=== PATIENT | female | born 1935 | race Caucasian/White ===

== ENCOUNTER 2018-06-09 09:17 | Outpatient (REF) | payer MEDICARE, OTHER, SELFPAY ==
[2018-06-09 14:48] LABS: Vitamin B12 554 pg/mL (193-986)
== END 2018-06-09 09:37 ==
LOC: NCHCN 09:17
PROVIDERS: PCP Nurse Practitioner Family; Visit Provider Nurse Practitioner Family
DX: R05 Cough (principal); M81.0 Age-related osteoporosis without current pathological fracture; K59.00 Constipation, unspecified; R53.83 Other fatigue; F51.04 Psychophysiologic insomnia; E53.8 Deficiency of other specified B group vitamins; E78.00 Pure hypercholesterolemia, unspecified; E03.9 Hypothyroidism, unspecified
CPT/HCPCS: 82607

== ENCOUNTER 2018-06-25 11:02 | Outpatient (CLI) | payer MEDICARE, OTHER, SELFPAY ==
--- NOTE | 2018-06-25 11:00 | DI.RAD_ITS ---
SYMPTOM/DIAGNOSIS: LOW BACK PAIN M54.5 LUMBOSACRAL SPINE: The vertebral bodies are intact. There is disc space narrowing at L2-3 with end plate sclerosis and mild hypertrophic spurring. The pedicles spinous and transverse processes as visualized appear intact. There is moderately severe facet joint DJD involving L3 through S1 bilaterally. There is no evidence of spondylolysis or spondylolisthesis. The sacrum and sacroiliac joints appear intact. SUMMARY: Degenerative changes are demonstrated as described above.
== END 2018-06-25 11:22 ==
PROVIDERS: PCP Nurse Practitioner Family; Visit Provider Nurse Practitioner
DX: M54.5 Low back pain (principal); M51.36 Other intervertebral disc degeneration, lumbar region; M47.817 Spondylosis without myelopathy or radiculopathy, lumbosacral region
CPT/HCPCS: 72110

== ENCOUNTER 2018-10-05 10:36 | Outpatient (REF) | payer MEDICARE, OTHER, SELFPAY ==
[2018-10-05 15:33] LABS: ALT 22 U/L (12-78); AST 23 U/L (15-37); Albumin 3.6 g/dL (3.4-5.0); Alkaline Phosphatase 96 U/L (46-116); BUN 22 mg/dL (7-18); Bilirubin, Total 0.9 mg/dL (0.2-1.0); CREATININE 0.84 mg/dL (0.55-1.02); Calcium 9.7 mg/dL (8.5-10.1); Chloride 105 mmol/L (98-107); Glucose 95 mg/dL (70-100); Potassium 4.3 mmol/L (3.5-5.1); Sodium 141 mmol/L (136-145); TSH (W/Ref FT4) 1.14 uIU/mL (0.358-3.74); Total Protein 6.7 g/dL (6.4-8.2); Vitamin B12 480 pg/mL (193-986)
== END 2018-10-05 10:56 ==
LOC: NCHCN 10:36
PROVIDERS: PCP Nurse Practitioner Family; Visit Provider Nurse Practitioner Family
DX: E78.00 Pure hypercholesterolemia, unspecified (principal); E03.9 Hypothyroidism, unspecified; E53.8 Deficiency of other specified B group vitamins; I10 Essential (primary) hypertension; R53.83 Other fatigue; R05 Cough; M54.5 Low back pain; M81.0 Age-related osteoporosis without current pathological fracture
CPT/HCPCS: 80053; 82607; 84443

== ENCOUNTER 2018-12-25 14:44 | Outpatient (CLI) | payer MEDICARE, OTHER, SELFPAY ==
--- NOTE | 2018-12-25 15:07 | DI.RAD_ITS ---
SYMPTOMS/DIAGNOSIS: COUGH, R05, FATIGUE, R53.83 CHEST X-RAY, FRONTAL AND LATERAL VIEWS: No priors. The heart is normal in size. The lungs are clear. The mediastinal structures and pleura appear intact. IMPRESSION: Normal chest.
== END 2018-12-25 15:04 ==
PROVIDERS: PCP Nurse Practitioner Family; Visit Provider Nurse Practitioner Family
DX: R05 Cough (principal); R53.83 Other fatigue
CPT/HCPCS: 71046

== ENCOUNTER 2018-12-25 15:05 | Outpatient (REF) | payer MEDICARE, OTHER, SELFPAY ==
[2018-12-25 21:06] LABS: Abs Immature Grans 0.01 k/cumm (0.0-0.09); Absolute Basophil Count 0.03 k/cumm (0.0-0.2); Absolute Eosinophil Count 0.16 k/cumm (0.0-0.7); Absolute Lymphocyte Count 1.89 k/cumm (1.2-3.4); Absolute Monocyte Count 0.52 k/cumm (0.11-0.7); Absolute Neutrophil Count 4.41 k/cumm (1.2-6.7); Basophils % 0.4; Eosinophils % 2.3; HCT 45.2 % (36.0-46.0); HGB 14.7 g/dL (12.0-15.5); Immature Grans % 0.1; Lymphocytes % 26.9; Mean Corp. HGB Concentration 32.5 g/dL (32.0-36.0); Mean Corpuscular Hemoglobin 29.2 pg (27.0-33.0); Mean Corpuscular Volume 89.9 fL (80-95); Mean Platelet Volume 10.9 fL (8.0-11.0); Monocytes % 7.4; Neutrophils % 62.9; Platelet Count 236 x1000/uL (130-400); RBC 5.03 m/cumm (4.00-5.20); White Blood Cell Count 7.02 k/cumm (4.4-10.8)
[2018-12-25 21:18] LABS: Iron 57 ug/dL (50-175); Total Iron Binding Capacity 270 ug/dL (250-450); Transferrin Sat 21 % (15-50)
[2018-12-25 22:00] LABS: ESR 11 MM/HR (0-30)
[2018-12-25 22:04] LABS: ALT 27 U/L (12-78); AST 22 U/L (15-37); Albumin 4.1 g/dL (3.4-5.0); Alkaline Phosphatase 95 U/L (46-116); Anion Gap 9.9 mmol/L (3-11); BUN 17 mg/dL (7-18); Bilirubin, Total 0.9 mg/dL (0.2-1.0); CO2 27.1 mmol/L (21.0-32.0); CREATININE 0.84 mg/dL (0.55-1.02); Calcium 9.9 mg/dL (8.5-10.1); Chloride 103 mmol/L (98-107); Ferritin 76 ng/mL (8-388); Glucose 100 mg/dL (70-100); Potassium 3.8 mmol/L (3.5-5.1); Sodium 140 mmol/L (136-145); TSH (W/Ref FT4) 0.34 uIU/mL (0.358-3.74); Total Protein 7.2 g/dL (6.4-8.2); Vitamin B12 675 pg/mL (193-986)
[2018-12-25 22:20] LABS: C-Reactive Protein 0.12 mg/dL (0.0-0.3)
[2018-12-28 06:40] LABS: Vitamin D 25 Total 40.3 ng/ml (30-100)
== END 2018-12-25 15:25 ==
LOC: NCHCN 15:05
PROVIDERS: PCP Nurse Practitioner Family; Visit Provider Nurse Practitioner Family
DX: R05 Cough (principal); I10 Essential (primary) hypertension; R53.83 Other fatigue
CPT/HCPCS: 80053; 82306; 85652; 82607; 82728; 83540; 83550; 83735; 84439; 84443; 85025; 86140

== ENCOUNTER 2019-02-04 08:50 | Outpatient (REF) | payer MEDICARE, OTHER, SELFPAY ==
[2019-02-04 13:48] LABS: TSH (W/Ref FT4) 1.86 uIU/mL (0.358-3.74)
== END 2019-02-04 09:10 ==
LOC: NCHCN 08:50
PROVIDERS: PCP Nurse Practitioner Family; Visit Provider Nurse Practitioner Family
DX: E03.9 Hypothyroidism, unspecified (principal); I10 Essential (primary) hypertension; R05 Cough
CPT/HCPCS: 84443

== ENCOUNTER 2019-10-28 10:25 | Outpatient (REF) | payer MEDICARE, OTHER, SELFPAY ==
[2019-10-28 13:00] LABS: ALT 22 U/L (14-59); AST 18 U/L (15-37); Albumin 3.8 g/dL (3.4-5.0); Alkaline Phosphatase 85 U/L (46-116); Anion Gap 6.6 mmol/L (3-11); BUN 19 mg/dL (7-18); Bilirubin, Total 1.1 mg/dL (0.2-1.0); CO2 26.4 mmol/L (21.0-32.0); CREATININE 0.83 mg/dL (0.55-1.02); Calcium 9.2 mg/dL (8.5-10.1); Chloride 108 mmol/L (98-107); Glucose 109 mg/dL (74-106); Potassium 4.2 mmol/L (3.5-5.1); Sodium 141 mmol/L (136-145); TSH (W/Ref FT4) 0.73 uIU/mL (0.36-3.74); Total Protein 6.8 g/dL (6.4-8.2); Vitamin B12 412 pg/mL (193-986)
== END 2019-10-28 10:45 ==
LOC: NCHCN 10:25
PROVIDERS: PCP Nurse Practitioner Family; Visit Provider Nurse Practitioner Family
DX: E03.9 Hypothyroidism, unspecified (principal); E78.00 Pure hypercholesterolemia, unspecified; R53.83 Other fatigue; E53.8 Deficiency of other specified B group vitamins; I10 Essential (primary) hypertension; F51.04 Psychophysiologic insomnia; K59.00 Constipation, unspecified
CPT/HCPCS: 80053; 82607; 84443

== ENCOUNTER 2020-10-12 14:30 | Outpatient (REF) | payer MEDICARE, OTHER, SELFPAY ==
[2020-10-12 14:06] LABS: ALT 21 U/L (14-59); AST 18 U/L (15-37); Albumin 3.9 g/dL (3.4-5.0); Alkaline Phosphatase 74 U/L (46-116); Anion Gap 10.5 mmol/L (3-11); BUN 17 mg/dL (7-18); Bilirubin, Total 0.9 mg/dL (0.2-1.0); CO2 26.5 mmol/L (21.0-32.0); CREATININE 0.92 mg/dL (0.55-1.02); Calcium 9.6 mg/dL (8.5-10.1); Chloride 104 mmol/L (98-107); Glucose 92 mg/dL (74-106); Potassium 4.4 mmol/L (3.5-5.1); Sodium 141 mmol/L (136-145); TSH (W/Ref FT4) 1.32 uIU/mL (0.36-3.74); Vitamin B12 598 pg/mL (193-986)
== END 2020-10-12 14:50 ==
LOC: NCHCN 14:30
PROVIDERS: PCP Nurse Practitioner Family; Visit Provider Nurse Practitioner Family
DX: I10 Essential (primary) hypertension (principal); R53.83 Other fatigue; E53.8 Deficiency of other specified B group vitamins; R05 Cough; M81.0 Age-related osteoporosis without current pathological fracture; K59.00 Constipation, unspecified; R17 Unspecified jaundice
CPT/HCPCS: 80053; 82607; 84443

== ENCOUNTER 2021-08-07 14:20 | Outpatient (REF) | payer MEDICARE, OTHER, SELFPAY ==
[2021-08-08 02:35] LABS: Calcium 9.6 mg/dL (8.5-10.1)
[2021-08-08 02:36] LABS: ALT 24 U/L (14-59); AST 23 U/L (15-37); Alkaline Phosphatase 81 U/L (46-116); Anion Gap 10.9 mmol/L (3-11); BUN 19 mg/dL (7-18); Bilirubin, Total 0.9 mg/dL (0.2-1.0); CO2 27.1 mmol/L (21.0-32.0); CREATININE 0.9 mg/dL (0.55-1.02); Chloride 106 mmol/L (98-107); Estimated GFR 59.65 (mL/min/1.73m2); Glucose 101 mg/dL (74-106); Sodium 144 mmol/L (136-145); TSH (W/Ref FT4) 5.93 uIU/mL (0.36-3.74); Vitamin B12 347 pg/mL (193-986)
== END 2021-08-07 14:21 | disposition home or self-care (01) ==
LOC: NCHCN 14:20
PROVIDERS: PCP Nurse Practitioner Family; Visit Provider Nurse Practitioner Family
DX: R53.83 Other fatigue (principal); R17 Unspecified jaundice; K59.00 Constipation, unspecified; F41.9 Anxiety disorder, unspecified; F51.04 Psychophysiologic insomnia
CPT/HCPCS: 80053; 82607; 84439; 84443

== ENCOUNTER 2021-10-03 08:54 | Outpatient (REF) | payer MEDICARE, OTHER, SELFPAY | END 2021-10-03 08:55 | disposition home or self-care (01) | LOC: NCHCN 08:54 | PROVIDERS: PCP Nurse Practitioner Family; Visit Provider Nurse Practitioner Family | CPT/HCPCS: 84443 ==

== ENCOUNTER 2021-10-04 13:01 | Outpatient (REF) | payer MEDICARE, OTHER, SELFPAY ==
[2021-10-04 16:06] LABS: TSH (W/Ref FT4) 0.01 uIU/mL (0.36-3.74)
[2021-10-04 16:24] LABS: FREE T4 2.03 ng/dL (0.76-1.46)
== END 2021-10-04 13:02 | disposition home or self-care (01) ==
LOC: NCHCN 13:01
PROVIDERS: PCP Nurse Practitioner Family; Visit Provider Nurse Practitioner Family
DX: E03.9 Hypothyroidism, unspecified (principal)
CPT/HCPCS: 84439; 84443

== ENCOUNTER 2021-11-26 12:50 | Outpatient (REF) | payer MEDICARE, OTHER, SELFPAY ==
[2021-11-26 15:52] LABS: TSH (W/Ref FT4) 3.23 uIU/mL (0.36-3.74)
== END 2021-11-26 12:51 | disposition home or self-care (01) ==
LOC: NCHCN 12:50
PROVIDERS: PCP Nurse Practitioner Family; Visit Provider Nurse Practitioner Family
DX: E03.9 Hypothyroidism, unspecified (principal)
CPT/HCPCS: 84443

== ENCOUNTER → 2022-02-14 02:03 | Outpatient (CLI) | payer MEDICARE, OTHER, SELFPAY ==
--- NOTE | 2022-02-14 13:52 | DI.RAD_ITS ---
Exam(s) XR SHOULDER RT COMPLETE 2+V EXAM: XR SHOULDER RT COMPLETE 2+V CLINICAL HISTORY: RT SHOULDER PAIN,M25.511. TECHNIQUE: 2D digital imaging was performed of the right shoulder. Five images were obtained. AP, Grashey, Y-view and axillary views were obtained. COMPARISON: No exams were available for comparison FINDINGS: BONES: No acute fracture is present. No bony destructive lesion is seen. JOINTS: No dislocation present. [id number]-zo-[id number] degenerative changes are seen at the acromioclavicul ar and glenohumeral joints. SOFT TISSUE: Normal. IMPRESSION: Httn-ov-tolwsdwe degenerative changes of the right shoulder. DATA REPOSITORY: RADIATION DOSE DELIVERED:
== END ==
PROVIDERS: PCP Nurse Practitioner Family; Visit Provider Nurse Practitioner Family
DX: M25.511 Pain in right shoulder (principal); M19.011 Primary osteoarthritis, right shoulder
CPT/HCPCS: 73030

== ENCOUNTER 2022-02-15 19:26 | Outpatient (REF) | payer MEDICARE, OTHER, SELFPAY | END 2022-02-15 19:27 | disposition home or self-care (01) | LOC: NCHCN 19:26 | PROVIDERS: PCP Nurse Practitioner Family; Visit Provider Nurse Practitioner Family | DX: N39.0 Urinary tract infection, site not specified (principal) | CPT/HCPCS: 87086 ==

== ENCOUNTER 2022-02-18 06:02 | Emergency (ER) | payer MEDICARE, OTHER, SELFPAY ==
[2022-02-18] VITALS (31 sets, daily range): BP systolic 132–196; BP diastolic 61–84; PULSE 67–87; RESP 12–21; TEMP 36.2–37; O2SAT 95–100
--- NOTE | 2022-02-18 06:00 | RT.EKG_ITS ---
APPROVED REPORT Exam: Resting ECG Reason for Exam: weakness Patient Location: E HR:71 bpm ECG Measurements Heart Rate 71 AXIS AR 169 P 56 QRSd 90 QRS 20 QT 385 T 36 QTc 419 Conclusion Sinus rhythm...normal P axis, V-rate 60- 99 Physician: minimal depression in V4 and V5. No ST elevation. No STEMI. Q wave in lead 3. no prior for comparison
--- NOTE | 2022-02-18 06:16 | W.ED.GENAD ---
Discharge Plan Disposition Patient Disposition: STILL A PATIENT Condition: Stable Discharge Details Chief Complaint: GenMedical Clinical Impression: Weakness Primary Care Provider: Rachel Ventura ED Provider: Rico Almodovar Home Meds and New Rx's Prescriptions: No Action lidocaine 4 % adhesive patch,medicated 1 patch TOPICAL Q12H PRN PRN Label Comments: apply prn shoulder acetaminophen [Tylenol Extra Strength] 500 mg Tablet 500 mg PO Q6H PRN simvastatin 40 mg tablet 1 tab PO DAILY levothyroxine 100 mcg tablet 1 tab PO DAILY levothyroxine [Synthroid] 88 mcg tablet 1 tab PO DAILY candesartan 16 mg tablet 1 tab PO DAILY aspirin 81 mg Tablet 81 mg PO Q3-4D polyethylene glycol 3350 [Miralax] 17 gram/dose powder 1 pwd PO DAILY Label Comments: 1 daily fluticasone propionate 50 mcg/actuation spray,suspension 1 spray INTRANASAL BID Joe 128 2 % drops 1 drp ophthalmic (eye) BID PRN Label Comments: 1 drop bid prn Dry Eye Relief 1-0.2-0.2 % drops 1 drp ophthalmic (eye) TID PRN Label Comments: 1-3 times daily Fish Oil 1,000 mg Capsule 1 cap PO DAILY cholecalciferol (vitamin D3) [Vitamin D3] 25 mcg (1,000 unit) tablet 1 tab PO DAILY Label Comments: take 1 daily PreserVision AREDS-2 250-90-40-1 mg Capsule 1 tab PO DAILY Medical Decision Making This is a 87-year-old female with a past medical history of hypothyroidism, high cholesterol, hypertension, who was recently started on nitrofurantoin for urinary tract infection 3 days ago, who presents today via EMS for weakness. Patient states that she did have an increase in her urination 3 to 4 days ago, at which point she was started on nitrofurantoin by her primary care provider. Since then she has had continued increase in urination which is now been compounded by notable weakness with any activities. She states that she feels very fatigued. She wishes I could just sleep for 3 days. She denies any room spinning sensation but does feel lightheaded when she stands up. She does live at home with her . She denies any falls or trauma. She denies any fever. She does admit to a cough that is been present for the last 3 to 4 days as well. She has received her COVID-vaccine and her flu vaccine. No other complaints at this time. No other modifying factors. Exam demonstrates a well-appearing female, notably dry mucous membranes, and notably weak in all extremities. Lung sounds are clear but she does admit to a cough. Differential includes COVID, pneumonia, continued urinary tract infection, compounded by dehydration. We will gently rehydrate with 500 cc of normal saline, we will evaluate for infectious etiologies. Stroke seems less likely but given her age and risk factors we will get a CT scan to rule out significant abnormality. Will monitor closely and reassess. She denies chest pain, but we will get a troponin and EKG to evaluate for evidence of ACS. EKG: Sinus, minimal depression in V4 and V5. No ST elevation. No STEMI. Q wave in lead 3. no prior for comparison HPI General Date/Time Provider Initiated Documentation: 02/18/22 06:09. HPI Narrative: This is a 87-year-old female with a past medical history of hypothyroidism, high cholesterol, hypertension, who was recently started on nitrofurantoin for urinary tract infection 3 days ago, who presents today via EMS for weakness. Patient states that she did have an increase in her urination 3 to 4 days ago, at which point she was started on nitrofurantoin by her primary care provider. Since then she has had continued increase in urination which is now been compounded by notable weakness with any activities. She states that she feels very fatigued. She wishes I could just sleep for 3 days. She denies any room spinning sensation but does feel lightheaded when she stands up. She does live at home with her . She denies any falls or trauma. She denies any fever. She does admit to a cough that is been present for the last 3 to 4 days as well. She has received her COVID-vaccine and her flu vaccine. No other complaints at this time. No other modifying factors. Related Data Home Medications Medication Instructions Recorded Confirmed acetaminophen 500 mg tablet 500 mg PO Q6H PRN 02/18/22 02/18/22 (Tylenol Extra Strength) aspirin 81 mg tablet 81 mg PO Q3-4D 02/18/22 02/18/22 candesartan 16 mg tablet 1 tab PO DAILY 02/18/22 02/18/22 cholecalciferol (vitamin D3) 25 1 tab PO DAILY 02/18/22 02/18/22 mcg (1,000 unit) tablet (Vitamin D3) fluticasone propionate 50 1 spray intranasal BID 02/18/22 02/18/22 mcg/actuation nasal spray,suspension levothyroxine 100 mcg tablet 1 tab PO DAILY 02/18/22 02/18/22 levothyroxine 88 mcg tablet 1 tab PO DAILY 02/18/22 02/18/22 (Synthroid) lidocaine 4 % topical patch 1 patch topical Q12H PRN PRN 02/18/22 02/18/22 omega-3 fatty acids-vitamin E 1 cap PO DAILY 02/18/22 02/18/22 1,000 mg capsule peg [id number] 1 1 drp ophthalmic (eye) TID PRN 02/18/22 02/18/22 %-0.2 %-0.2 % eye drops (Dry Eye Relief) polyethylene glycol 3350 17 1 pwd PO DAILY 02/18/22 02/18/22 gram/dose oral powder (Miralax) simvastatin 40 mg tablet 1 tab PO DAILY 02/18/22 02/18/22 sodium chloride 2 % eye drops 1 drp ophthalmic (eye) BID PRN 02/18/22 02/18/22 (Joe 128) vit C 250 mg-vit E 90 mg-zinc 40 1 tab PO DAILY 02/18/22 02/18/22 mg-copper 1 lf-ivkzaf-ohgpjz capsule (PreserVision AREDS-2) Allergies Allergy/AdvReac Type Severity Reaction Status Date / Time epinephrine Allergy Intermediate Other (See Unverified 02/18/22 06:46 Comment) neomycin Allergy Mild Other (See Unverified 02/18/22 06:46 Comment) Penicillins Allergy Mild Other (See Unverified 02/18/22 06:46 Comment) tetracycline Allergy Mild Other (See Unverified 02/18/22 06:46 Comment) General Stated Complaint: GenMedical HERMINIO: 3 Review of Systems All systems reviewed & are unremarkable except as noted in HPI and below PFSH All Active Problems (Updated 02/18/22 @ 07:07 by Rico Almodovar DO) Weakness (Acute) Social History Smoking/Tobacco Use Status: Never Smoking risk assessment performed?: Yes Alcohol Intake: current Substance use type: does not use Do you feel safe at home: Yes Do you feel safe in your relationship?: Yes Exam Narrative Exam Narrative: 1.Const: Well-nourished, Well-developed, appearing stated age 2.Eyes: PERRL, no conjunctival injection, and symmetrical lids. 3.ENT: Atraumatic external nose and ears. Notably dry MM. Neck: Symmetric, trachea midline, No thyromegaly. 4.CVS: +S1/S2, No murmurs or gallops. Peripheral pulses 2+ and equal in all extremities. Brisk capillary refill in all extremities. 5.RESP: Unlabored respiratory effort. Clear to auscultation bilaterally. No wheezes rales or rhonchi 6.GI: Soft, Nontender/Nondistended, No hepatosplenomegaly. No guarding or rebound. 7.MSK: Normocephalic/Atraumatic, Extremities w/o deformity or ttp No cyanosis or clubbing, Normal movement of all extremities, no pitting edema. Patient is able to move all extremities, however she does demonstrate on the 3-4 out of 5 strength in all extremities. Very weak with movement in general. 8.Skin: Warm, Dry. No rashes or lesions. 9.Neuro: visitor services coordinator II-XII grossly intact. Sensation grossly intact, no focal neurologic deficits. No clear focal neurologic deficit. No dysdiadochokinesia or dysmetria. 10.Psych: (AAO) x3. Appropriate mood and affect Course Vital Signs Vital signs: Vital Signs Temperature 37.0 C 02/18/22 06:07 Pulse 81 02/18/22 06:07 Respiratory Rate 13 02/18/22 06:07 Blood Pressure 196/82 H 02/18/22 06:07 Pulse Oximetry 98 02/18/22 06:07 Temperature 37.0 C 02/18/22 06:07 Temperature Source Skin 02/18/22 06:07 Pulse 81 02/18/22 06:07 Respiratory Rate 13 02/18/22 06:07 Blood Pressure 196/82 H 02/18/22 06:07 Blood Pressure Position Supine 02/18/22 06:07 Pulse Oximetry 98 02/18/22 06:07 Oxygen Delivery Method Room Air 02/18/22 06:07 Oxygen Flow Rate 0 02/18/22 06:07 Pain Level 0 02/18/22 06:07
[2022-02-18] MEDS: Normal Saline 500 ML IV (06:38)
[2022-02-18 06:51] LABS: Abs Immature Grans 0.02 10^3/uL (0.0-0.06); Absolute Basophil Count 0.03 10^3/uL (0.0-0.2); Absolute Eosinophil Count 0.05 10^3/uL (0.0-0.7); Absolute Lymphocyte Count 0.89 10^3/uL (1.2-3.4); Absolute Monocyte Count 0.39 10^3/uL (0.1-0.8); Absolute Neutrophil Count 4.52 10^3/uL (1.2-6.7); Basophils % 0.5; Eosinophils % 0.8; HCT 43.9 % (36.0-46.0); HGB 14.4 g/dL (11.2-15.7); Immature Grans % 0.3; Lymphocytes % 15.1; MCH 30.3 pg (27.0-33.0); MCHC 32.8 % (32.0-36.0); MCV 92 fL (80-95); MPV 9.9 fL (8.0-11.0); Monocytes % 6.6; Neutrophils % 76.7; Platelet Count 211 10^3/uL (130-400); RBC 4.75 10^6/uL (3.93-5.22); RDW 14.3 % (11.7-14.6); RDW-SD 48.6 fL
--- NOTE | 2022-02-18 07:02 | DI.CT_ITS ---
Exam(s) CT HEAD WO EXAM: CT HEAD WO CLINICAL HISTORY: weakness, r/o stroke. TECHNIQUE: Imaging Protocol: Axial computed tomography images with coronal and sagittal reformatted images were created and reviewed COMPARISON: No exams were available for comparison FINDINGS: Ventricles and Extra axial spaces: Normal in size and morphology for the patient's age. Hemorrhage: None. Cerebral parenchyma: Mild atrophy. Mild white matter changes consistent with small vessel disease. Midline shift: None. Brainstem/Cerebellum: Normal. Calvarium: Normal. Visualized Paranasal sinuses/Mastoids: Clear. IMPRESSION: No acute abnormality. RADIATION DOSE DELIVERED: 705.77mGy.cm Total DLP 705.77mGy.cm Total DLP DATA REPOSITORY: All CT scans at this facility are submitted to the National Radiology Data Registry (NRDR) Dose Index Registry (DIR) with the [employer] (ACR). RADIATION OPTIMIZATION: All CT scans at this facility use at least one of these dose optimization te chniques: automated exposure control; mA and/or kV adjustment per patient size (includes targeted exa ms where dose is matched to clinical indication); or iterative reconstruction.
--- NOTE | 2022-02-18 07:10 | DI.RAD_ITS ---
Exam(s) XR CHEST 1V IN DI DEPT EXAM: XR CHEST 1V IN DI DEPT CLINICAL HISTORY: cough, weakness, r/o pneumonia TECHNIQUE: 2D digital imaging was performed. COMPARISON: CR XR CHEST 2V PA LATERAL from 12/25/2018 FINDINGS: LUNGS: Clear. No pleural abnormality seen. HEART: Normal. AORTA: Normal. BONES: Unremarkable for age. Soft tissues: Unremarkable. IMPRESSION: No acute findings. DATA REPOSITORY: RADIATION DOSE DELIVERED:
[2022-02-18 07:30] LABS: COVID-19 PCR Negative (Negative); Influenza A PCR Negative (Negative); Influenza B PCR Negative (Negative); RSV PCR Negative (Negative)
[2022-02-18 07:33] LABS: Source Nasopharynx
[2022-02-18 07:43] LABS: Bilirubin Negative (Negative); Blood Negative (Negative); Clarity Clear (Clear); Glucose Negative (Negative); Ketones Negative (Negative); Leukocyte Esterase Negative (Negative); Nitrite Negative (Negative); Specific Gravity 1.015 (1.005-1.025); Urobilinogen 0.2 EU/dL (Up TO 0.2)
[2022-02-18 07:57] LABS: ALT 25 U/L (14-59); AST 29 U/L (15-37); Albumin 3.6 g/dL (3.4-5.0); Alkaline Phosphatase 94 U/L (46-116); Anion Gap 5.8 mmol/L (3-11); BUN 14 mg/dL (7-18); Bilirubin, Total 0.8 mg/dL (0.2-1.0); CO2 28.2 mmol/L (21.0-32.0); CREATININE 0.8 mg/dL (0.55-1.02); Chloride 107 mmol/L (98-107); Glucose 103 mg/dL (74-106); Potassium 4.4 mmol/L (3.5-5.1); Sodium 141 mmol/L (136-145); TSH (W/Ref FT4) 45.75 uIU/mL (0.36-3.74); Total Protein 6.9 g/dL (6.4-8.2); Troponin I < 50 ng/L (<or=60)
--- NOTE | 2022-02-18 07:57 | DI.VRAD_ITS ---
PROCEDURE INFORMATION: Exam: CT Head Without Contrast Exam date and time: 02/18/2022 7:02 AM Age: 87 years old Clinical indication: Patient HX: Weakness/r/o stroke TECHNIQUE: Imaging protocol: Computed tomography of the head without contrast. Radiation optimization: All CT scans at this facility use at least one of these dose optimization techniques: automated exposure control; mA and/or kV adjustment per patient size (includes targeted exams where dose is matched to clinical indication); or iterative reconstruction. Other technique: STROKE PROTOCOL was implemented. COMPARISON: No relevant prior studies available. FINDINGS: Brain: No acute intracerebral abnormality or injury. No acute infarct or intracerebral bleed. Mild age-appropriate cerebral atrophy with patchy periventricular leukomalacia in both cerebral hemispheres, consistent most likely with chronic underlying small vessel / microvascular ischemic disease. [place] Stroke Program Early CT Score (ASPECTS score) = 10, negative for acute intracerebral infarct. Cerebral ventricles: No ventriculomegaly. Paranasal sinuses: Visualized sinuses are unremarkable. No fluid levels. Mastoid air cells: Visualized mastoid air cells are well aerated. Bones/joints: Unremarkable. No acute fracture. Soft tissues: Unremarkable. IMPRESSION: 1. No acute intracerebral abnormality or injury. No acute infarct or intracerebral bleed. 2. Mild age-appropriate cerebral atrophy with patchy periventricular leukomalacia in both cerebral hemispheres, consistent most likely with chronic underlying small vessel / microvascular ischemic disease. 3. [place] Stroke Program Early CT Score (ASPECTS score) = 10, negative for acute intracerebral infarct. Dictated and Authenticated by: Jett Bryan MD. Ordering:GWENDOLYN Gómez MD
--- NOTE | 2022-02-18 08:01 | DI.VRAD_ITS ---
PROCEDURE INFORMATION: Exam: XR Chest Exam date and time: 02/18/2022 7:09 AM Age: 87 years old Clinical indication: Cough TECHNIQUE: Imaging protocol: XR of the chest. Views: 1 view. COMPARISON: CR XR CHEST 2V PA LATERAL 12/25/2018 3:17 PM FINDINGS: Lungs: Unremarkable. No consolidation. Pleural spaces: Unremarkable. No pleural effusion. No pneumothorax. Heart/Mediastinum: Unremarkable. No cardiomegaly. Bones/joints: Mild chronic degenerative vertebral body endplate osteophytic disease is seen in the lower thoracic spine. IMPRESSION: 1. No definite acute findings. No significant interval change since the previous chest radiograph from 12/25/2018. 2. Mild chronic degenerative vertebral body endplate osteophytic disease is seen in the lower thoracic spine. Dictated and Authenticated by: Jett Bryan MD. Ordering:GWENDOLYN Gómez MD
[2022-02-18 08:13] LABS: FREE T4 0.93 ng/dL (0.76-1.46)
--- NOTE | 2022-02-18 11:22 | ED.PROG_ITS ---
Date of service: 02/18/22 Time of Service: 10:22 Medical Decision Making Pt signed out to me by Dr. Almodovar at time of shift change with CT, chest x-ray, labs pending. CXR negative. CT head negative. Labs reviewed and non-diagnostic, no leukocytosis, trop negative. Pt reports that she feels improved and would like to go home. I offered Pt admission for generalized weakness of unclear etiology at this time, Pt states that she feels comfortable going home and would much prefer to go home and f/u with her PCP. Pt is able to stand and walk, no focal weakness on my assessment. Discussed patient presentation and results with her PCP over the phone, plan for outpatient follow-up this week. I had a discussion with Patient regarding return to emergency department precautions, home care, and importance of outpatient follow-up. Pt verbalizes understanding of the plan and is amenable. Patient discharged to home with clear plan for outpatient follow-up. All questions were answered. Disposition decision was made weighing the risks and benefits of hospitalization versus outpatient treatment, the risk for further decompensation, and the patient's wishes. Medical Records Medical records reviewed: Yes I reviewed the patient's medical records. Imaging Data Radiologic Study: Attestation: I personally reviewed and interpreted this imaging study as follows: Radiologist's impression: Exam: XR Chest Exam date and time: 02/18/2022 7:09 AM Age: 87 years old Clinical indication: Cough TECHNIQUE: Imaging protocol: XR of the chest. Views: 1 view. COMPARISON: CR XR CHEST 2V PA LATERAL 12/25/2018 3:17 PM FINDINGS: Lungs: Unremarkable. No consolidation. Pleural spaces: Unremarkable. No pleural effusion. No pneumothorax. Heart/Mediastinum: Unremarkable. No cardiomegaly. Bones/joints: Mild chronic degenerative vertebral body endplate osteophytic disease is seen in the lower thoracic spine.? IMPRESSION: 1. No definite acute findings.? No significant interval change since the previous chest radiograph from 12/25/2018. 2. Mild chronic degenerative vertebral body endplate osteophytic disease is seen in the lower thoracic spine.? EXAM: ? CT HEAD WO CLINICAL HISTORY: ? weakness, r/o stroke. ? TECHNIQUE:? Imaging Protocol: Axial computed tomography images with coronal and sagittal reformatted images were created and reviewed COMPARISON:? No exams were available for comparison FINDINGS: Ventricles and Extra axial spaces: Normal in size and morphology for the patient's age. Hemorrhage: None. Cerebral parenchyma: Mild atrophy.? Mild white matter changes consistent with small vessel disease. Midline shift: None. Brainstem/Cerebellum: Normal. Calvarium: Normal. Visualized Paranasal sinuses/Mastoids: Clear. IMPRESSION: No acute abnormality. Lab Data Lab results reviewed: Yes I reviewed the patient's lab results. Labs: Laboratory Tests Range/Units 02/18/22 02/18/22 02/18/22 06:34 06:34 06:34 WBC (4.4-10.8) 10^3/uL 5.90 RBC (3.93-5.22) 10^6/uL 4.75 Hgb (11.2-15.7) g/dL 14.4 Hct (36.0-46.0) % 43.9 MCV (80-95) fL 92 MCH (27.0-33.0) pg 30.3 MCHC (32.0-36.0) % 32.8 RDW (11.7-14.6) % 14.3 Plt Count (130-400) 10^3/uL 211 MPV (8.0-11.0) fL 9.9 Immature Gran % 0.3 Neutrophils % 76.7 Lymphocytes % 15.1 Monocytes % 6.6 Eosinophils % 0.8 Basophils % 0.5 Nucleated RBC % (0.0-0.3) % 0.0 Absolute Neutrophils (1.2-6.7) 10^3/uL 4.52 Absolute Lymphocytes (1.2-3.4) 10^3/uL 0.89 L Absolute Monocytes (0.1-0.8) 10^3/uL 0.39 Absolute Eosinophils (0.0-0.7) 10^3/uL 0.05 Absolute Basophils (0.0-0.2) 10^3/uL 0.03 Sodium Cancelled Potassium Cancelled Chloride Cancelled Carbon Dioxide Cancelled Anion Gap Cancelled BUN Cancelled Creatinine Cancelled Estimated GFR/1.73 m2 Cancelled Glucose Cancelled Calcium Cancelled Total Bilirubin Cancelled AST Cancelled ALT Cancelled Alkaline Phosphatase Cancelled Troponin I Cancelled Cancelled Total Protein Cancelled Albumin Cancelled TSH Cancelled Free T4 (0.76-1.46) ng/dL Urine Color (Yellow) Urine Clarity (Clear) Urine pH (5-8) Ur Specific [place] (1.005-1.025) Urine Protein (Negative) mg/dL Urine Ketones (Negative) mg/dL Urine Blood (Negative) Urine Nitrite (Negative) Urine Bilirubin (Negative) Urine Urobilinogen (Up TO 0.2) EU/dL Ur Leukocyte Esterase (Negative) Urine Glucose (Negative) mg/dL COVID-19 Source SARS-CoV-2 (PCR) (Negative) Influenza Type A (PCR) (Negative) Influenza Type B (PCR) (Negative) RSV (PCR) (Negative) Range/Units 02/18/22 02/18/22 02/18/22 06:36 07:25 07:30 WBC (4.4-10.8) 10^3/uL RBC (3.93-5.22) 10^6/uL Hgb (11.2-15.7) g/dL Hct (36.0-46.0) % MCV (80-95) fL MCH (27.0-33.0) pg MCHC (32.0-36.0) % RDW (11.7-14.6) % Plt Count (130-400) 10^3/uL MPV (8.0-11.0) fL Immature Gran % Neutrophils % Lymphocytes % Monocytes % Eosinophils % Basophils % Nucleated RBC % (0.0-0.3) % Absolute Neutrophils (1.2-6.7) 10^3/uL Absolute Lymphocytes (1.2-3.4) 10^3/uL Absolute Monocytes (0.1-0.8) 10^3/uL Absolute Eosinophils (0.0-0.7) 10^3/uL Absolute Basophils (0.0-0.2) 10^3/uL Sodium 141 Potassium 4.4 Chloride 107 Carbon Dioxide 28.2 Anion Gap 5.8 BUN 14 Creatinine 0.8 Estimated GFR/1.73 m2 >= 60.00 Glucose 103 Calcium 9.0 Total Bilirubin 0.8 AST 29 ALT 25 Alkaline Phosphatase 94 Troponin I < 50 Total Protein 6.9 Albumin 3.6 TSH 45.75 H Free T4 (0.76-1.46) ng/dL 0.93 Urine Color (Yellow) Yellow Urine Clarity (Clear) Clear Urine pH (5-8) 7.0 Ur Specific [place] (1.005-1.025) 1.015 Urine Protein (Negative) mg/dL Negative Urine Ketones (Negative) mg/dL Negative Urine Blood (Negative) Negative Urine Nitrite (Negative) Negative Urine Bilirubin (Negative) Negative Urine Urobilinogen (Up TO 0.2) EU/dL 0.2 Ur Leukocyte Esterase (Negative) Negative Urine Glucose (Negative) mg/dL Negative COVID-19 Source Nasopharynx SARS-CoV-2 (PCR) (Negative) Negative Influenza Type A (PCR) (Negative) Negative Influenza Type B (PCR) (Negative) Negative RSV (PCR) (Negative) Negative Sign Out Sign Out Data: Sign Out Comment: weakness, pending CT, CXR, and labs Last updated by Rico Almodovar DO at 02/18/22 07:08 Discharge Plan Disposition Patient Disposition: HOME Condition: Stable Discharge Details Clinical Impression: Weakness, Cough Primary Care Provider: Rachel Ventura ED Provider: Mague Torres Home Meds and New Rx's Prescriptions: Continued lidocaine 4 % adhesive patch,medicated 1 patch TOPICAL Q12H PRN PRN Label Comments: apply prn shoulder acetaminophen [Tylenol Extra Strength] 500 mg Tablet 500 mg PO Q6H PRN simvastatin 40 mg tablet 1 tab PO DAILY levothyroxine 100 mcg tablet 1 tab PO DAILY levothyroxine [Synthroid] 88 mcg tablet 1 tab PO DAILY candesartan 16 mg tablet 1 tab PO DAILY aspirin 81 mg Tablet 81 mg PO Q3-4D polyethylene glycol 3350 [Miralax] 17 gram/dose powder 1 pwd PO DAILY Label Comments: 1 daily fluticasone propionate 50 mcg/actuation spray,suspension 1 spray INTRANASAL BID Joe 128 2 % drops 1 drp ophthalmic (eye) BID PRN Label Comments: 1 drop bid prn Dry Eye Relief 1-0.2-0.2 % drops 1 drp ophthalmic (eye) TID PRN Label Comments: 1-3 times daily omega-3 fatty acids-vitamin E 1,000 mg Capsule 1 cap PO DAILY cholecalciferol (vitamin D3) [Vitamin D3] 25 mcg (1,000 unit) tablet 1 tab PO DAILY Label Comments: take 1 daily PreserVision AREDS-2 250-90-40-1 mg Capsule 1 tab PO DAILY Discharge Instructions Instructions: Weakness (ED), Acute Cough (ED) Additional Instructions: Please return immediately to the emergency department if you develop any new or worsening symptoms, if your condition does not improve as expected, or if you become otherwise concerned. It is extremely important that you call soon as possible to make an appointment to be seen in follow-up for this visit by your primary care doctor. Referrals: Rachel Ventura [Primary Care Provider] - Discharge Data Discharge Date/Time-TO BE ENTERED AT DEPARTURE: 02/18/22 11:38
[2022-02-18] MEDS: Azithromycin 250 MG TAB 500 MG PO (11:45)
== END 2022-02-18 11:38 | disposition home or self-care (01) ==
PROVIDERS: Student in an Organized Health Care Education/Training Program; Emergency Provider Student in an Organized Health Care Education/Training Program; PCP Nurse Practitioner Family
DX: R53.1 Weakness (principal); R05.1 Acute cough
CPT/HCPCS: 80053; 87637; 93005; 96360; 96361; 99284; 99285; 70450; 71045; 81003; 84439; 84443; 84484; 85025; 93010

== ENCOUNTER 2022-02-22 18:42 | Outpatient (REF) | payer MEDICARE, OTHER, SELFPAY ==
[2022-02-22 14:57] LABS: FREE T4 0.93 ng/dL (0.76-1.46); TSH 45.35 uIU/mL (0.36-3.74)
[2022-02-22 22:13] LABS: T3,Free 1.9 pg/mL (2.8-5.3)
== END 2022-02-22 18:43 | disposition home or self-care (01) ==
LOC: NCHCN 18:42
PROVIDERS: PCP Nurse Practitioner Family; Visit Provider Nurse Practitioner Family
DX: E03.9 Hypothyroidism, unspecified (principal); I10 Essential (primary) hypertension; N39.0 Urinary tract infection, site not specified
CPT/HCPCS: 84439; 84443; 84481; 87086

== ENCOUNTER 2022-03-14 17:56 | Outpatient (REF) | payer MEDICARE, OTHER, SELFPAY ==
[2022-03-14 15:28] LABS: TSH (W/Ref FT4) 0.16 uIU/mL (0.36-3.74)
[2022-03-14 18:43] LABS: FREE T4 2.07 ng/dL (0.76-1.46)
== END 2022-03-14 17:57 | disposition home or self-care (01) ==
LOC: NCHCN 17:56
PROVIDERS: PCP Nurse Practitioner Family; Visit Provider Nurse Practitioner Family
DX: E03.9 Hypothyroidism, unspecified (principal)
CPT/HCPCS: 84439; 84443

== ENCOUNTER 2022-04-23 16:32 | Outpatient (REF) | payer MEDICARE, OTHER, SELFPAY ==
[2022-04-23 15:43] LABS: TSH (W/Ref FT4) 4.36 uIU/mL (0.36-3.74)
[2022-04-23 16:10] LABS: Bacteria Negative HPF (Negative); C & S Indicated? C&S Done As Ordered; Crystals Negative HPF (Negative); Epithelial Cells Negative HPF (Negative); Mucus Negative (Negative)
== END 2022-04-23 16:33 | disposition home or self-care (01) ==
LOC: NCHCN 16:32
PROVIDERS: PCP Nurse Practitioner Family; Visit Provider Nurse Practitioner Family
DX: E03.9 Hypothyroidism, unspecified (principal); R39.9 Unspecified symptoms and signs involving the genitourinary system
CPT/HCPCS: 81015; 84439; 84443; 87086

== ENCOUNTER → 2022-05-30 03:45 | Outpatient (CLI) | payer MEDICARE, OTHER, SELFPAY ==
--- NOTE | 2022-05-30 | DI.US_ITS ---
Exam(s) US THYROID EXAM: US THYROID CLINICAL HISTORY: HYPOTHYROIDISM E03.9. TECHNIQUE: Ultrasound thyroid performed using standard protocol. COMPARISON: No exams were available for comparison FINDINGS: Both thyroid lobes are small and exhibit heterogeneous echotexture but no discernible nodules. RIGHT THYROID LOBE: Measures 0.8 cm AP x 0.9 cm wide x 1.7 cm craniocaudal ISTHMUS: Normal thickness, measuring 3 millimeters. There are no nodules in the isthmus. LEFT THYROID LOBE: Measures 1.0 cm AP x 0.6 cm wide by 1.9 cm craniocaudal. LYMPH NODES: There is no significant adenopathy. IMPRESSION: 1. Small thyroid gland, with measurements as above. 2. Heterogeneous echotexture of the gland but no discernible nodules in either lobe nor in the isthmu s. 3. There is no significant lymphadenopathy. DATA REPOSITORY:
== END ==
PROVIDERS: PCP Nurse Practitioner Family; Visit Provider Nurse Practitioner Family
DX: E03.9 Hypothyroidism, unspecified (principal)
CPT/HCPCS: 76536

== ENCOUNTER 2022-08-13 03:43 | Outpatient (CLI) | payer MEDICARE, OTHER, SELFPAY ==
[2022-08-13 09:56] LABS: TSH 1.31 uIU/mL (0.36-3.74)
[2022-08-13 10:05] LABS: Vitamin B12 > 2000 pg/mL (193-986)
[2022-08-13 10:24] LABS: FREE T4 1.67 ng/dL (0.76-1.46)
== END 2022-08-13 03:44 | disposition home or self-care (01) ==
LOC: LBO 03:43
PROVIDERS: PCP Nurse Practitioner Family; Visit Provider Internal Medicine Endocrinology, Diabetes & Metabolism
DX: E03.9 Hypothyroidism, unspecified (principal); E53.8 Deficiency of other specified B group vitamins
CPT/HCPCS: 36415; 82607; 84439; 84443

== ENCOUNTER 2023-03-07 12:41 | Outpatient (REF) | payer MEDICARE, OTHER, SELFPAY ==
[2023-03-07 14:32] LABS: TSH (W/Ref FT4) 0.23 uIU/mL (0.36-3.74)
[2023-03-07 14:54] LABS: FREE T4 1.33 ng/dL (0.76-1.46)
== END 2023-03-07 12:42 | disposition home or self-care (01) ==
LOC: NCHCN 12:41
PROVIDERS: PCP Nurse Practitioner Family; Visit Provider Nurse Practitioner Family
DX: E03.9 Hypothyroidism, unspecified (principal)
CPT/HCPCS: 84439; 84443

== ENCOUNTER 2023-03-20 01:29 | Outpatient (CLI) | payer MEDICARE, OTHER, SELFPAY ==
--- NOTE | 2023-03-20 09:44 | DI.RAD_ITS ---
Exam(s) XR CHEST 2V PA LATERAL EXAM: XR CHEST 2V PA LATERAL CLINICAL HISTORY: COUGH, R05 TECHNIQUE: 2D digital imaging was performed. COMPARISON: CR XR CHEST 2V PA LATERAL from 12/25/2018 CR,XR XR CHEST 1V IN DI DEPT from 02/18/2022 FINDINGS: HEART: Normal size. Aorta: Not dilated. PULMONARY VASCULATURE: Normal. LUNGS: Clear. PLEURAL SPACE: No pleural effusion or pneumothorax. BONE:Unremarkable for age. IMPRESSION: No acute abnormality. DATA REPOSITORY: RADIATION DOSE DELIVERED:
== END 2023-03-20 01:49 ==
LOC: DI 01:30
PROVIDERS: PCP Nurse Practitioner Family; Visit Provider Internal Medicine
DX: R05.9 Cough, unspecified (principal)
CPT/HCPCS: 71046

== ENCOUNTER 2023-03-31 13:27 | Outpatient (REF) | payer MEDICARE, OTHER, SELFPAY ==
[2023-03-31 14:33] LABS: Abs Immature Grans 0.03 10^3/uL (0.0-0.06); Absolute Basophil Count 0.04 10^3/uL (0.0-0.2); Absolute Lymphocyte Count 1.52 10^3/uL (1.2-3.4); Absolute Monocyte Count 0.62 10^3/uL (0.1-0.8); Absolute Neutrophil Count 5.67 10^3/uL (1.2-6.7); Basophils % 0.5; Eosinophils % 1.3; HCT 43.9 % (36.0-46.0); HGB 14.2 g/dL (11.2-15.7); Immature Grans % 0.4; MCH 28.7 pg (27.0-33.0); MCHC 32.3 % (32.0-36.0); MCV 89 fL (80-95); MPV 9.6 fL (8.0-11.0); Monocytes % 7.8; Platelet Count 283 10^3/uL (130-400); RBC 4.94 10^6/uL (3.93-5.22); RDW-SD 45.2 fL; WBC 7.98 10^3/uL (4.4-10.8)
[2023-03-31 15:04] LABS: ALT 24 U/L (14-59); AST 19 U/L (15-37); Albumin 3.8 g/dL (3.4-5.0); Alkaline Phosphatase 98 U/L (46-116); Anion Gap 7.8 mmol/L (3-11); BUN 17 mg/dL (7-18); CO2 27.2 mmol/L (21.0-32.0); CREATININE 0.7 mg/dL (0.55-1.02); Calcium 9.6 mg/dL (8.5-10.1); Chloride 104 mmol/L (98-107); Estimated GFR 84.17 (mL/min/1.73m2); Glucose 95 mg/dL (74-106); Potassium 4.2 mmol/L (3.5-5.1); Sodium 139 mmol/L (136-145); TSH (W/Ref FT4) 0.36 uIU/mL (0.36-3.74)
== END 2023-03-31 13:28 | disposition home or self-care (01) ==
LOC: NCHCN 13:27
PROVIDERS: PCP Nurse Practitioner Family; Visit Provider Family Medicine
DX: H53.2 Diplopia (principal); R53.83 Other fatigue; E03.9 Hypothyroidism, unspecified
CPT/HCPCS: 80053; 84443; 85025

== ENCOUNTER 2023-04-25 00:43 | Outpatient (CLI) | payer MEDICARE, OTHER, SELFPAY ==
--- NOTE | 2023-04-25 09:00 | DI.US_ITS ---
Exam(s) US CAROTID EXAM: US CAROTID CLINICAL HISTORY: DIPLOPIA, H53.2. TECHNIQUE: Ultrasound carotids performed using grayscale, color-flow, and spectral Doppler imaging. COMPARISON: No exams were available for comparison FINDINGS: RIGHT CAROTID ARTERY: Plaque: Minimal plaque seen in the carotid bulb. Velocity elevation: None. LEFT CAROTID ARTERY: Plaque: Minimal plaque seen in the carotid bulb. Velocity elevation: None. VERTEBRAL ARTERIES: Antegrade flow. Measurements: R Bulb: 47.8cm/s PS / 12.8cm/s ED R CCA: 69.8cm/s PS / 14.1cm/s ED R ECA: 131.1cm/s PS / 12.6cm/s ED R ICA Prox: 77.1cm/s PS / 18.3cm/s ED R ICA Mid: 87.4cm/s PS / 25.4cm/s ED R ICA Distal: 82.6cm/s PS /19.2cm/s ED R Vert: 45.9cm/s PS / 7.4cm/s ED R SVR: 1.3 R DVR: 1.8 L Bulb: 52.5cm/s PS / 16.8cm/s ED L CCA: 53.4cm/s PS / 14.9cm/s ED L ECA: 79.5cm/s PS / 10.9cm/s ED L ICA Prox: 71.4cm/s PS / 25.3cm/s ED L ICA Mid: 68.7cm/s PS / 19.5cm/s ED L ICA Distal: 53.3cm/s PS / 17.4cm/s ED L Vert: 41.8cm/s PS / 12.7cm/s ED L SVR: 1.3 L DVR: 1.7 IMPRESSION: No evidence for hemodynamically significant carotid stenosis. Criteria for Carotid Stenosis: Normal: ICA PSV <125 cm/s no plaque or intimal thickening is visible. <50% stenosis: ICA PSV <125 cm/s and plaque or intimal thickening is visible. 50-69% stenosis: ICA PSV is 125-250 cm/s and plaque is visible. >70% stenosis to near occlusion: ICA PSV >250 cm/s with visible plaque and luminal narrowing. DATA REPOSITORY:
== END 2023-04-25 01:03 ==
LOC: DI 00:43
PROVIDERS: PCP Nurse Practitioner Family; Visit Provider Family Medicine
DX: H53.2 Diplopia (principal)
CPT/HCPCS: 93880

== ENCOUNTER 2023-08-28 13:17 | Outpatient (REF) | payer MEDICARE, OTHER, SELFPAY ==
[2023-08-28 17:33] LABS: TSH (W/Ref FT4) 0.71 uIU/mL (0.36-3.74); Vitamin B12 1835 pg/mL (193-986)
[2023-08-28 18:13] LABS: Vitamin D 25 Total 42.4 ng/mL (30-100)
== END 2023-08-28 13:18 | disposition home or self-care (01) ==
LOC: NCHCN 13:17
PROVIDERS: PCP Nurse Practitioner Family; Visit Provider Nurse Practitioner Family
DX: E03.9 Hypothyroidism, unspecified (principal); M81.0 Age-related osteoporosis without current pathological fracture
CPT/HCPCS: 82306; 82607; 84443

== ENCOUNTER 2024-01-06 10:31 | Outpatient (REF) | payer MEDICARE, OTHER, SELFPAY ==
[2024-01-06 16:22] LABS: Anion Gap 8.2 mmol/L (3-11); BUN 18 mg/dL (7-18); CO2 29.8 mmol/L (21.0-32.0); CREATININE 0.8 mg/dL (0.55-1.02); Calcium 9.6 mg/dL (8.5-10.1); Chloride 109 mmol/L (98-107); Estimated GFR 71.71 (mL/min/1.73m2); Glucose 147 mg/dL (74-106); Potassium 4.8 mmol/L (3.5-5.1); Sodium 147 mmol/L (136-145); TSH (W/Ref FT4) 0.24 uIU/mL (0.36-3.74); Vitamin B12 763 pg/mL (193-986)
[2024-01-06 16:58] LABS: FREE T4 1.19 ng/dL (0.76-1.46)
[2024-01-06 17:15] LABS: Vitamin D 25 Total 59.5 ng/mL (30-100)
== END 2024-01-06 10:32 | disposition home or self-care (01) ==
LOC: NCHCN 10:31
PROVIDERS: PCP Nurse Practitioner Family; Visit Provider Nurse Practitioner Family
DX: I10 Essential (primary) hypertension (principal); M81.0 Age-related osteoporosis without current pathological fracture; E03.9 Hypothyroidism, unspecified; E53.9 Vitamin B deficiency, unspecified
CPT/HCPCS: 80048; 82306; 82607; 84439; 84443

== ENCOUNTER 2024-02-18 10:42 | Outpatient (REF) | payer MEDICARE, OTHER, SELFPAY ==
[2024-02-18 15:29] LABS: Anion Gap 10.8 mmol/L (3-11); BUN 14 mg/dL (7-18); CO2 25.2 mmol/L (21.0-32.0); CREATININE 0.8 mg/dL (0.55-1.02); Calcium 9.3 mg/dL (8.5-10.1); Chloride 103 mmol/L (98-107); Estimated GFR 71.27 (mL/min/1.73m2); Glucose 104 mg/dL (74-106); Potassium 4.1 mmol/L (3.5-5.1); Sodium 139 mmol/L (136-145); TSH (W/Ref FT4) 0.17 uIU/mL (0.36-3.74)
[2024-02-18 15:36] LABS: Hemoglobin A1C 5.4 % (<5.7)
[2024-02-18 15:58] LABS: FREE T4 1.21 ng/dL (0.76-1.46)
== END 2024-02-18 10:43 | disposition home or self-care (01) ==
LOC: NCHCN 10:42
PROVIDERS: PCP Nurse Practitioner Family; Visit Provider Nurse Practitioner Family
DX: R73.9 Hyperglycemia, unspecified (principal); E03.9 Hypothyroidism, unspecified
CPT/HCPCS: 80048; 83036; 84439; 84443

== ENCOUNTER 2024-04-06 13:00 | Outpatient (REF) | payer MEDICARE, OTHER, SELFPAY ==
[2024-04-06 15:15] LABS: TSH (W/Ref FT4) 0.22 uIU/mL (0.36-3.74)
[2024-04-06 15:38] LABS: FREE T4 1.28 ng/dL (0.76-1.46)
== END 2024-04-06 13:01 | disposition home or self-care (01) ==
LOC: NCHCN 13:00
PROVIDERS: PCP Nurse Practitioner Family; Visit Provider Nurse Practitioner Family
DX: E03.9 Hypothyroidism, unspecified (principal)
CPT/HCPCS: 84439; 84443

== ENCOUNTER 2024-06-10 16:44 | Outpatient (REF) | payer MEDICARE, OTHER, SELFPAY ==
[2024-06-10 21:57] LABS: TSH (W/Ref FT4) 19.91 uIU/mL (0.36-3.74)
[2024-06-10 22:21] LABS: FREE T4 0.89 ng/dL (0.76-1.46)
== END 2024-06-10 16:45 | disposition home or self-care (01) ==
LOC: NCHCN 16:44
PROVIDERS: PCP Nurse Practitioner Family; Visit Provider Nurse Practitioner Family
DX: E03.9 Hypothyroidism, unspecified (principal)
CPT/HCPCS: 84439; 84443

== ENCOUNTER 2024-09-07 12:21 | Outpatient (REF) | payer MEDICARE, OTHER, SELFPAY ==
[2024-09-07 15:23] LABS: FREE T4 1.22 ng/dL (0.76-1.46); TSH 0.37 uIU/mL (0.36-3.74)
== END 2024-09-07 12:22 | disposition home or self-care (01) ==
LOC: NCHCN 12:21
PROVIDERS: PCP Nurse Practitioner Family; Visit Provider Nurse Practitioner Family
DX: E03.9 Hypothyroidism, unspecified (principal)
CPT/HCPCS: 84439; 84443

== ENCOUNTER 2024-10-14 21:02 | Outpatient (REF) | payer MEDICARE, OTHER, SELFPAY ==
[2024-10-14 15:10] LABS: TSH (W/Ref FT4) 3.13 uIU/mL (0.36-3.74)
[2024-10-15 13:47] LABS: IgA 185 mg/dL (85-499); Interpretation (See Note); Tissue Transglutaminase IgA <4.0 CU (<20.0)
== END 2024-10-14 21:03 | disposition home or self-care (01) ==
LOC: NCHCN 21:02
PROVIDERS: PCP Nurse Practitioner Family; Visit Provider Nurse Practitioner Family
DX: E03.9 Hypothyroidism, unspecified (principal)
CPT/HCPCS: 82784; 83516; 84443

== ENCOUNTER 2025-04-26 13:05 | Outpatient (REF) | payer MEDICARE, OTHER, SELFPAY ==
[2025-04-26 16:13] LABS: TSH 1.32 uIU/mL (0.36-3.74)
== END 2025-04-26 13:06 | disposition home or self-care (01) ==
LOC: NCHCN 13:05
PROVIDERS: PCP Nurse Practitioner Family; Visit Provider Nurse Practitioner Family
DX: E03.9 Hypothyroidism, unspecified (principal)
CPT/HCPCS: 84439; 84443